=== PATIENT | female | born 1995 | race Caucasian/White ===

== ENCOUNTER 2017-09-08 20:51 | Emergency (ER) | payer MEDICAID, OTHER ==
[2017-09-08] MEDS: LIDOCAINE/MYLANTA 40 ML BTL PO (22:22)
[2017-09-08] MEDS: ONDANSETRON (ODT) 4 MG TAB ODT (22:22)
== END 2017-09-08 22:51 | disposition home or self-care (01) ==
LOC: FTE 20:51
DX: R11.10 Vomiting, unspecified (principal); T39.1X5A Adverse effect of 4-Aminophenol derivatives, initial encounter
CPT/HCPCS: 81025; 99283